=== PATIENT | female | born 1950 | race Caucasian/White ===

== ENCOUNTER 2022-10-18 10:49 | Observation (INO) ==
[2022-10-18 11:05] VITALS: BMI 33.5
--- NOTE | 2022-10-18 11:45 | DR.GENAD ---
HPI Time Seen Time Seen by Provider: 10/18/22 11:44 PCP Primary Care Physician: Willi Crowe Complaint/Symptoms Chief Complaint Doctors Comments: RECURRENT DIZZINESS,LIGHT HEADEDNESS AND LOW BP AT HOME. HAD LABS DWARN BY PCP AND WAS TOLD HGB WAS 6.5 AND WAS TOLD TO [facility] ER FOR FURTHER EVALUATION. HAS BEEN HAVING SOME LOSS OF BALANCE AT HOME. Chief Complaint:: Pt c/o dizzy spells, lightheaded, BP has been low at home. Blood work done yesterday per PCP and states her hgb was low, 6.5 per PCP ofc staff this morning. Pt was advised to come to ER for eval. BS has been "a little low". Frequent falls at home; states her fluid intake and appetite has been adequate. 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 Family History History of Family Medical Conditions: Yes Family Medical History: Diabetes Mellitus, Cancer, Coronary Artery Disease, Heart Failure and Hypertension Social History Does patient currently use any type of tobacco product: Yes Have you used tobacco products in the last 12 months: Yes Type of Tobacco Use: Cigarettes Does any household member use tobacco: Yes Alcohol Use: None Do you use any recreational Drugs:: No Lives With: Spouse and Family Lives Where: Home Travel Risk Coronavirus risk:travel/contact w/high risk person: No Has patient experienced Coronavirus symptoms: No Infectious screening In the last 2 months have you had wt loss of >10#?: NO Have you had fever, night sweats or hemotysis?: No Have you traveled outside the country in the last 6 months?: No Isolation: Standard ROS Review of Systems Constitutional: Weakness, Fatigue and Other (LIGHT HEADED) Eyes: No Symptoms Reported ENTM: No Symptoms Reported Respiratoy: No Symptoms Reported Cardiovascular: No Symptoms Reported Gastrointestinal/Abdominal: No Symptoms Reported Genitourinary: No Symptoms Reported Neurological: No Symptoms Reported Musculoskeletal: No Symptoms Reported Integumentary: No Symptoms Reported; negative See HPI, Change in Color, Change in Hair/Nails, Dryness, Lesions, Lumps, Rash, Itching, Wound, Bruises, Juandice or Other Hematologic/Lymphatic: No Symptoms Reported Endocrine: No Symptoms Reported Psychiatric: No Symptoms Reported PE Vital Signs Vitals: Vital Signs Temperature 98.9 F Pulse Rate 93 Pulse Rate 85 Pulse Rate 80 Pulse Rate 83 Pulse Rate 88 Pulse Rate 82 Pulse Rate 83 Pulse Rate 82 Pulse Rate 99 Respiratory Rate 20 Blood Pressure 123/73 Blood Pressure 118/58 Blood Pressure 147/65 Blood Pressure 108/54 Blood Pressure 115/53 Blood Pressure 113/56 O2 Sat by Pulse Oximetry 92 O2 Sat by Pulse Oximetry 93 O2 Sat by Pulse Oximetry 94 O2 Sat by Pulse Oximetry 96 O2 Sat by Pulse Oximetry 98 O2 Sat by Pulse Oximetry 96 O2 Sat by Pulse Oximetry 98 O2 Sat by Pulse Oximetry 98 O2 Sat by Pulse Oximetry 97 General Limitations: No Limitations General Appearance: Alert and In Distress (MILD DISTRESS) Head Head Exam: Normal Inspection, Atraumatic and Normocephalic Eyes Eye exam: Normal Appearance, PERRL and EOMI ENT ENT Exam: Normal Exam, Normal Oropharynx and Normal External Ear Exam External Ear Exam: Normal External Inspection Nose Exam: Normal Nose Exam Mouth Exam: Normal Inspection Throat Exam: Normal Inspection Neck Neck Exam: Normal Inspection and Full ROM Chest Chest Inspection: Normal Inspection and Symmetric Chest Wall Rise Respiratory Respiratory Exam: Normal Lung Sounds Bilat Respiratory Exam: Bilateral: Clear to Auscultation Cardiovascular Cardiovascular Exam: Regular Rate and Normal Rhythm Abdominal Exam Abdominal Exam: Normal Inspection and Normal Bowel Sounds Extremities Extremities Exam: Normal Inspection and Full ROM Back Back Exam: Normal Inspection and Full ROM Neurologic Neurological Exam: Alert and Oriented X3 Psychiatric Psychiatric Exam: Normal Affect and Normal Mood Skin Skin Exam: Warm, Dry and Intact MDM Differential Diagnosis Differential Diagnosis: ANEMIA,LETHARGY,DIZZINESS COURSE Treatment Treatment: PATIENT REMAINED RELATIVELY STABLE DURING ER EVALUATION. H/H WAS 6.7/21.3. CT OF BRAIN WAS NEGATIVE FOR INTRACRANIAL ABNORMALITY. FECAL OCCULT BLOOD WAS NEGATIVE.CONTACT WAS MADE WITH DR HARTLEY AT 1505 AND HE STATED TO REFER THE PATIENT TO OBSERVATION FOR TRANSFUSE 2 UNITS OF PRBC. PATIENT WAS TOLD OF THE INTENT AND WASA AGREABLE TO THE INTENT. ROR Labs Reviewed Laboratory Results Reviewed?: Yes 10/18/22 12:10 10/18/22 12:10 Laboratory: WBC 10.4 X10^3/uL (3.6-10.0) H 10/18/22 12:10 RBC 3.51 X10^6/uL (3.5-5.4) 10/18/22 12:10 Hgb 6.7 g/dL (12.0-16.0) L* 10/18/22 12:10 Hct 21.3 % (36.0-47.0) L 10/18/22 12:10 MCV 60.8 fL (80.0-100.0) L 10/18/22 12:10 MCH 19.2 pg (27.0-34.0) L 10/18/22 12:10 MCHC 31.6 g/dL (33.0-35.0) L 10/18/22 12:10 RDW 20.5 % (11.6-16.5) H 10/18/22 12:10 Plt Count 255 X10^3/uL (150.0-450.0) 10/18/22 12:10 Plt Count Comment Adequate (ADEQUATE) 10/18/22 12:10 MPV 8.4 fL (7.4-11.0) 10/18/22 12:10 Neut % (Auto) 72.2 % (42.0-75.0) 10/18/22 12:10 Lymph % (Auto) 17.6 % (21.0-51.0) L 10/18/22 12:10 [place] % (Auto) 8.6 % (0.0-13.0) 10/18/22 12:10 Eos % (Auto) 1.0 % (0.9-2.9) 10/18/22 12:10 Baso % (Auto) 0.6 % (0.2-1.0) 10/18/22 12:10 Neut # (Auto) 7.5 x10^3/uL (2.2-4.8) H 10/18/22 12:10 Lymph # (Auto) 1.8 X10^3/uL (1.3-2.9) 10/18/22 12:10 [place] # (Auto) 0.9 x10^3/uL (0.3-0.8) H 10/18/22 12:10 Eos # (Auto) 0.1 x10^3/uL (0.0-0.2) 10/18/22 12:10 Baso # (Auto) 0.1 X10^3/uL (0.0-0.1) 10/18/22 12:10 Absolute Nucleated RBC 0.1 /100WBC 10/18/22 12:10 Plt Morphology Comment Normal (NORMAL) 10/18/22 12:10 RBC Morphology Abnormal (NORMAL) A 10/18/22 12:10 Hypochromasia 3+ A 10/18/22 12:10 Anisocytosis 1+ A 10/18/22 12:10 Microcytosis 2+ A 10/18/22 12:10 Target Cells Slight A 10/18/22 12:10 Schistocytes 1+ A 10/18/22 12:10 Sodium 131 mmol/L (136-145) L 10/18/22 12:10 Corrected Sodium TNP 10/18/22 12:10 Potassium 4.7 mmol/L (3.5-5.1) 10/18/22 12:10 Chloride 96 mmol/L (98-107) L 10/18/22 12:10 Carbon Dioxide 25.7 mmol/L (21-32) 10/18/22 12:10 BUN 25 mg/dL (7-18) H 10/18/22 12:10 Creatinine 1.01 mg/dL (0.55-1.02) 10/18/22 12:10 Est GFR (MDRD) Af Amer > 60 (>60) 10/18/22 12:10 Est GFR (MDRD) Non-Af 57 (>60) L 10/18/22 12:10 Glucose 68 mg/dL (65-99) 10/18/22 12:10 Calcium 8.6 mg/dL (8.5-10.1) 10/18/22 12:10 Corrected Calcium TNP 10/18/22 12:10 Total Bilirubin 0.20 mg/dL (0.2-1.0) 10/18/22 12:10 AST 20 Units/L (15-37) 10/18/22 12:10 ALT 16 Units/L (12-78) 10/18/22 12:10 Alkaline Phosphatase 72 Units/L (46-116) 10/18/22 12:10 Total Protein 7.1 g/dL (6.4-8.2) 10/18/22 12:10 Albumin 3.7 g/dL (3.4-5.0) 10/18/22 12:10 Globulin 3.4 g/dL (2.5-4.5) 10/18/22 12:10 Albumin/Globulin Ratio 1.1 Ratio (1.1-2.1) 10/18/22 12:10 Specimen Type Clean catch urine 10/18/22 11:49 Urine Color Straw (YELLOW) 10/18/22 11:49 Urine Appearance Clear (CLEAR) 10/18/22 11:49 Urine pH 6.0 (5.0 - 8.0) 10/18/22 11:49 Ur Specific [place] 1.015 (1.000-1.030) 10/18/22 11:49 Urine Protein Negative (NEGATIVE) 10/18/22 11:49 Urine Glucose (UA) Negative (NEGATIVE) 10/18/22 11:49 Urine Ketones Negative (NEGATIVE) 10/18/22 11:49 Urine Blood Negative (NEGATIVE) 10/18/22 11:49 Urine Nitrite Negative (NEGATIVE) 10/18/22 11:49 Urine Bilirubin Negative (NEGATIVE) 10/18/22 11:49 Urine Urobilinogen Normal (NORMAL) 10/18/22 11:49 Ur Leukocyte Esterase Negative (NEGATIVE) 10/18/22 11:49 Stl Occult Blood (IFOB) Negative (NEGATIVE) 10/18/22 15:14 Blood Type A POSITIVE 10/18/22 13:35 Antibody Screen Negative 10/18/22 12:10 Opioid Opioid Risk Tool Age (Bartolo box if 16-45): No History of Preadolescent Sexual Abuse: No Total: 0 Total Score Risk Category: Low Risk Copyright: Jaren GOFF predicting aberrant behaviors Discharge Plan Diagnosis Discharge Problem: Anemia Discharge Plan Patient Disposition: 09 ADMITTED INPATIENT Condition: Stable Prescriptions: No Action amitriptyline 75 mg tablet 1 tab PO QPM ropinirole 3 mg tablet 1 tab PO QPM diclofenac sodium 75 mg tablet,delayed release (DR/EC) 1 tab PO BID PRN Trulicity 0.75 mg/0.5 mL pen injector 0.75 mg SUBCUT QWEEK enalapril maleate 20 mg tablet 20 mg PO QDAY glipizide 10 mg tablet 10 mg PO BID acetaminophen-codeine 300-30 mg tablet 1 tab PO BID PRN (Reason: pain) omeprazole 40 mg capsule,delayed release(DR/EC) 40 mg PO QAM kdlpeyvhgi-vgxzlifqtdnop-zstk 50-325-40 mg tablet 1 tab PO QDAY PRN methocarbamol 750 mg tablet 750 mg PO TID metformin 1,000 mg tablet 1,000 mg PO BID aspirin 81 mg Tablet 81 mg PO QDAY furosemide 20 mg tablet 20 mg PO QDAY albuterol sulfate 90 mcg/actuation HFA aerosol inhaler 2 puff INHALATION Q6H PRN albuterol sulfate [ProAir HFA] 90 mcg/actuation Hfa Aerosol Inhaler 2 puff INHALATION Q4-6H PRN loratadine 10 mg Tablet 10 mg PO QDAY duloxetine 60 mg capsule,delayed release(DR/EC) 60 mg PO QDAY Januvia 100 mg tablet 100 mg PO QDAY fluticasone furoate-vilanterol [Breo Ellipta] 100-25 mcg/dose blister with device 1 ea INHALATION QDAY Health Concerns: Post Hospitalization: new medications and changes needed to prevent readmission or further decline. Pt educated and given instructions on all concerns. Plan of Treatment: Continue with present treatment and follow up plan. Pt is to keep follow up appointment as instructed and take medications as ordered. Orders to Discharge Patient Discharge Orders: Transfer (Routine); Ordered 10/18/22 Ordered By: Khang Fraga Follow ups/Referrals Follow ups/Referrals: DEEPTI CROWE [Primary Care Provider] - 3 days Instructions Stand Alone Forms: Post Hospital Follow Up Care
[2022-10-18 12:09] LABS: BILIRUBIN,URINE NEGATIVE (NEGATIVE); BLOOD/HEMOGLOBIN,URINE NEGATIVE (NEGATIVE); GLUCOSE, URINE NEGATIVE (NEGATIVE); KETONES,URINE NEGATIVE (NEGATIVE); LEUKOCYTE ESTERASE ,URINE NEGATIVE (NEGATIVE); NITRITES,URINE NEGATIVE (NEGATIVE); PROTEIN,URINE NEGATIVE (NEGATIVE); UROBILINOGEN,URINE NORMAL (NORMAL)
[2022-10-18 12:10] LABS: APPEARANCE,URINE CLEAR (CLEAR); COLOR,URINE STRAW (YELLOW)
[2022-10-18 12:24] LABS: EOSINOPHILS # (AUTO) 0.1 x10^3/uL (0.0-0.2)
[2022-10-18 12:28] LABS: BASOPHILS # (AUTO) 0.1 X10^3/uL (0.0-0.1); BASOPHILS % (AUTO) 0.6 % (0.2-1.0); HEMATOCRIT 21.3 % (36.0-47.0); LYMPHOCYTES # (AUTO) 1.8 X10^3/uL (1.3-2.9); LYMPHOCYTES % (AUTO) 17.6 % (21.0-51.0); MEAN CORPUSCULAR HEMOGLOBIN 19.2 pg (27.0-34.0); MEAN CORPUSCULAR HGB CONC 31.6 g/dL (33.0-35.0); MEAN CORPUSCULAR VOLUME 60.8 fL (80.0-100.0); MEAN PLATELET VOLUME 8.4 fL (7.4-11.0); MONOCYTES # (AUTO) 0.9 x10^3/uL (0.3-0.8); MONOCYTES % (AUTO) 8.6 % (0.0-13.0); NEUTROPHILS # (AUTO) 7.5 x10^3/uL (2.2-4.8); NEUTROPHILS % (AUTO) 72.2 % (42.0-75.0); PLATELET COUNT 255 X10^3/uL (150.0-450.0); RED BLOOD COUNT 3.51 X10^6/uL (3.5-5.4); RED CELL DISTRIBUTION WIDTH 20.5 % (11.6-16.5); WHITE BLOOD COUNT 10.4 X10^3/uL (3.6-10.0)
[2022-10-18 12:32] LABS: HEMOGLOBIN 6.7 g/dL (12.0-16.0)
[2022-10-18 12:45] LABS: ALANINE AMINOTRANSFERASE 16 Units/L (12-78); ALBUMIN 3.7 g/dL (3.4-5.0); ALKALINE PHOSPHATASE 72 Units/L (46-116); ASPARTATE AMINO TRANSFERASE 20 Units/L (15-37); BLOOD UREA NITROGEN 25 mg/dL (7-18); CALCIUM 8.6 mg/dL (8.5-10.1); CARBON DIOXIDE 25.7 mmol/L (21-32); CHLORIDE 96 mmol/L (98-107); CREATININE 1.01 mg/dL (0.55-1.02); GLUCOSE 68 mg/dL (65-99); POTASSIUM 4.7 mmol/L (3.5-5.1); SODIUM 131 mmol/L (136-145); TOTAL PROTEIN 7.1 g/dL (6.4-8.2); eGFR NON BLACK RACES 57 (>60)
[2022-10-18 12:46] LABS: ANISOCYTOSIS 1+; HYPOCHROMASIA 3+; MICROCYTOSIS 2+; PLATELET MORPHOLOGY COMMENT NORMAL (NORMAL); SCHISTOCYTES 1+; TARGET CELLS SLIGHT
--- NOTE | 2022-10-18 12:52 | CT ---
HISTORYPT C/O DIZZY SPELLS, LIGHTHEADED, BP HAS BEEN LOW AT HOME, FREQUENT FALLS AT HOMESTUDYBRAIN W/O CONCOMPARISONNone availableTECHNIQUEMultiple helical images of the brain from the vertex to the occiput were obtained. Coronal and sagittal reformats were performed. Dose reduction techniques including Automated Exposure Control (AEC) and adjustment of mA and kV were utilized.FINDINGS[No acute intraparenchymal hemorrhage or mass can be identified.] [No extra-axial fluid collections are seen.] [No alteration in the attenuation of the brain parenchyma can be identified to suggest acute or subacute ischemic change.] [The ventricular system is symmetric and nondilated.] [The extracranial structures are grossly unremarkable.]IMPRESSIONNo acute intracranial process identified.Electronically signed by: ANA GEE (Oct 18, 2022 12:50:31)
[2022-10-18] MEDS ORDERED: PROVENTIL NEB TX 0.083% 2.5MG/ 3ML NEB PRN (16:51)
[2022-10-18] MEDS: ELAVIL PO SCH (20:53)
[2022-10-18] MEDS: CRESTOR TAB 10 MG PO SCH (20:53)
[2022-10-18] MEDS: SNACK - Diabetic Appropriate PO SCH (20:54)
[2022-10-18] MEDS ORDERED: PROVENTIL NEB TX 0.083% 2.5MG/ 3ML NEB SCH (21:00)
[2022-10-18] MEDS ORDERED: Atrovent NEB TX 0.02% NEB SCH (21:00)
[2022-10-18] MEDS: PULMICORT NEB TX 0.5 MG NEB SCH (21:10)
[2022-10-18] MEDS ORDERED: NS 250 ML IV 250 ML IV ONE (23:01)
[2022-10-18] MEDS ORDERED: STERILE WATER IRRIGATION IR ONE (23:28)
[2022-10-19] MEDS ORDERED: NORCO 5/325 MG TAB PO PRN (00:34)
[2022-10-19 04:29] LABS: ALANINE AMINOTRANSFERASE 15 Units/L (12-78); ALBUMIN 3.2 g/dL (3.4-5.0); ALKALINE PHOSPHATASE 66 Units/L (46-116); ASPARTATE AMINO TRANSFERASE 16 Units/L (15-37); BLOOD UREA NITROGEN 18 mg/dL (7-18); CALCIUM 8.2 mg/dL (8.5-10.1); CARBON DIOXIDE 28.7 mmol/L (21-32); CHLORIDE 98 mmol/L (98-107); COR CA(FOR HYPOALB) 8.8 mg/dL (8.5-10.1); CREATININE 1.01 mg/dL (0.55-1.02); GLUCOSE 87 mg/dL (65-99); POTASSIUM 4.4 mmol/L (3.5-5.1); SODIUM 134 mmol/L (136-145); TOTAL PROTEIN 6.3 g/dL (6.4-8.2); eGFR NON BLACK RACES 57 (>60)
[2022-10-19 04:32] LABS: BASOPHILS # (AUTO) 0.1 X10^3/uL (0.0-0.1); EOSINOPHILS # (AUTO) 0.1 x10^3/uL (0.0-0.2); EOSINOPHILS % (AUTO) 1.6 % (0.9-2.9); HEMATOCRIT 22.4 % (36.0-47.0); HEMOGLOBIN 7.2 g/dL (12.0-16.0); LYMPHOCYTES % (AUTO) 25.2 % (21.0-51.0); MEAN CORPUSCULAR HEMOGLOBIN 20.1 pg (27.0-34.0); MEAN CORPUSCULAR HGB CONC 31.9 g/dL (33.0-35.0); MEAN CORPUSCULAR VOLUME 62.9 fL (80.0-100.0); MEAN PLATELET VOLUME 8.5 fL (7.4-11.0); MONOCYTES # (AUTO) 0.7 x10^3/uL (0.3-0.8); MONOCYTES % (AUTO) 8.3 % (0.0-13.0); NEUTROPHILS % (AUTO) 63.9 % (42.0-75.0); PLATELET COUNT 232 X10^3/uL (150.0-450.0); RED BLOOD COUNT 3.57 X10^6/uL (3.5-5.4); WHITE BLOOD COUNT 7.9 X10^3/uL (3.6-10.0)
[2022-10-19 04:38] LABS: ANISOCYTOSIS 1+; HYPOCHROMASIA 2+; MICROCYTOSIS 2+; PLATELET MORPHOLOGY COMMENT NORMAL (NORMAL); SCHISTOCYTES SLIGHT; TARGET CELLS SLIGHT
[2022-10-19] MEDS ORDERED: GLUCOPHAGE ONE ×2 (06:01→17:11)
[2022-10-19] MEDS: GLUCOPHAGE PO SCH ×2 (06:03→17:08)
[2022-10-19] MEDS: GLUCOTROL PO SCH ×2 (06:03→17:08)
[2022-10-19] MEDS: PULMICORT NEB TX 0.5 MG NEB SCH ×2 (08:56→21:44)
[2022-10-19] MEDS ORDERED: PATIENT'S HOME MEDICATION (Fluticasone Furoate-Vilanterol [Breo Ellipta] 100-25 mcg/dose b IN SCH (09:00)
[2022-10-19] MEDS: VASOTEC TAB 20 MG PO SCH (09:32)
[2022-10-19] MEDS ORDERED: NS 250 ML IV 250 ML IV ONE ×2 (09:36→23:43)
[2022-10-19] MEDS: JANUVIA PO SCH (11:30)
[2022-10-19] MEDS: CYMBALTA PO SCH (11:30)
[2022-10-19] MEDS: PriLOSEC PO SCH (11:31)
--- NOTE | 2022-10-19 12:31 | DR.H&P ---
H&P History & Physical for Day of: H&P Date: 10/19/22 Chief Complaint Chief Complaint: Lightheaded Dizziness Allergies Allergies Allergy/AdvReac Type Severity Reaction Status Date / Time cefaclor [From Ceclor] Allergy Verified 08/27/22 13:30 erythromycin base Allergy Verified 08/27/22 13:30 Tetracyclines Allergy Verified 08/27/22 13:30 History of Present Illness History of Present Illness: Patient presents with lightheaded and dizziness. She has a PMH of COPD, HTN and DM. She had labs done at PCP office and was told that her hemoglobin is low and to go to the ER. She was admitted for symptomatic anemia. Her Hgb on admission was 6.7. She has received 1 unit of PRBCs, Hgb is 7.2. She denies any active bleeding. FOBT (-). Labs/imaging reviewed Plan: Transfuse 1 more unit, monitor H/H. Anemia panel ordered. Resume home medications. Monitor for any bleeding. Follow AM labs. 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 Family History Family Medical History: Diabetes Mellitus, Cancer, Coronary Artery Disease, Heart Failure and Hypertension Social History Does patient currently use any type of tobacco product: Yes Have you used tobacco products in the last 12 months: Yes Type of Tobacco Use: Cigarettes Does any household member use tobacco: Yes Alcohol Use: None Drug Use: None Medications Home Medications: Home Medications Medication Instructions Recorded Confirmed Type amitriptyline 75 mg tablet 1 tab PO QPM 08/27/22 10/18/22 History diclofenac sodium 75 mg 1 tab PO BID PRN 08/27/22 10/18/22 History tablet,delayed release dulaglutide 0.75 mg/0.5 mL 0.75 mg subcut QWEEK 08/27/22 10/18/22 History subcutaneous pen injector (Trulicity) ropinirole 3 mg tablet 1 tab PO QPM 08/27/22 10/18/22 History acetaminophen 300 mg-codeine 30 mg 1 tab PO BID PRN pain 10/18/22 10/18/22 History tablet albuterol sulfate 90 mcg/actuation 2 puff inhalation Q6H PRN 10/18/22 10/18/22 History aerosol inhaler albuterol sulfate 90 mcg/actuation 2 puff inhalation Q4-6H PRN 10/18/22 10/18/22 History aerosol inhaler (ProAir HFA) aspirin 81 mg tablet 81 mg PO QDAY 10/18/22 10/18/22 History cynkqreykq-gwlrmhxvrtdft-flrrbxox 1 tab PO QDAY PRN 10/18/22 10/18/22 History 50 mg-325 mg-40 mg tablet duloxetine 60 mg capsule,delayed 60 mg PO QDAY 10/18/22 10/18/22 History release enalapril maleate 20 mg tablet 20 mg PO QDAY 10/18/22 10/18/22 History fluticasone furoate 100 1 ea inhalation QDAY 10/18/22 10/18/22 History mcg-vilanterol 25 mcg/dose inhalation powder (Breo Ellipta) furosemide 20 mg tablet 20 mg PO QDAY 10/18/22 10/18/22 History glipizide 10 mg tablet 10 mg PO BID 10/18/22 10/18/22 History loratadine 10 mg tablet 10 mg PO QDAY 10/18/22 10/18/22 History metformin 1,000 mg tablet 1,000 mg PO BID 10/18/22 10/18/22 History methocarbamol 750 mg tablet 750 mg PO TID 10/18/22 10/18/22 History omeprazole 40 mg capsule,delayed 40 mg PO QAM 10/18/22 10/18/22 History release sitagliptin phosphate 100 mg 100 mg PO QDAY 10/18/22 10/18/22 History tablet (Januvia) Labs 10/19/22 04:05 10/19/22 04:05 Labs: Laboratory WBC 7.9 X10^3/uL (3.6-10.0) 10/19/22 04:05 RBC 3.57 X10^6/uL (3.5-5.4) 10/19/22 04:05 Hgb 7.2 g/dL (12.0-16.0) L 10/19/22 04:05 Hct 22.4 % (36.0-47.0) L 10/19/22 04:05 MCV 62.9 fL (80.0-100.0) L 10/19/22 04:05 MCH 20.1 pg (27.0-34.0) L 10/19/22 04:05 MCHC 31.9 g/dL (33.0-35.0) L 10/19/22 04:05 RDW 22.0 % (11.6-16.5) H 10/19/22 04:05 Plt Count 232 X10^3/uL (150.0-450.0) 10/19/22 04:05 Plt Count Comment Adequate (ADEQUATE) 10/19/22 04:05 MPV 8.5 fL (7.4-11.0) 10/19/22 04:05 Neut % (Auto) 63.9 % (42.0-75.0) 10/19/22 04:05 Lymph % (Auto) 25.2 % (21.0-51.0) 10/19/22 04:05 [place] % (Auto) 8.3 % (0.0-13.0) 10/19/22 04:05 Eos % (Auto) 1.6 % (0.9-2.9) 10/19/22 04:05 Baso % (Auto) 1.0 % (0.2-1.0) 10/19/22 04:05 Neut # (Auto) 5.0 x10^3/uL (2.2-4.8) H 10/19/22 04:05 Lymph # (Auto) 2.0 X10^3/uL (1.3-2.9) 10/19/22 04:05 [place] # (Auto) 0.7 x10^3/uL (0.3-0.8) 10/19/22 04:05 Eos # (Auto) 0.1 x10^3/uL (0.0-0.2) 10/19/22 04:05 Baso # (Auto) 0.1 X10^3/uL (0.0-0.1) 10/19/22 04:05 Absolute Nucleated RBC 0.1 /100WBC 10/19/22 04:05 Plt Morphology Comment Normal (NORMAL) 10/19/22 04:05 RBC Morphology Abnormal (NORMAL) A 10/19/22 04:05 Hypochromasia 2+ A 10/19/22 04:05 Anisocytosis 1+ A 10/19/22 04:05 Microcytosis 2+ A 10/19/22 04:05 Target Cells Slight A 10/19/22 04:05 Schistocytes Slight A 10/19/22 04:05 Sodium 134 mmol/L (136-145) L 10/19/22 04:05 Corrected Sodium TNP 10/19/22 04:05 Potassium 4.4 mmol/L (3.5-5.1) 10/19/22 04:05 Chloride 98 mmol/L (98-107) 10/19/22 04:05 Carbon Dioxide 28.7 mmol/L (21-32) 10/19/22 04:05 BUN 18 mg/dL (7-18) 10/19/22 04:05 Creatinine 1.01 mg/dL (0.55-1.02) 10/19/22 04:05 Est GFR (MDRD) Af Amer > 60 (>60) 10/19/22 04:05 Est GFR (MDRD) Non-Af 57 (>60) L 10/19/22 04:05 Glucose 87 mg/dL (65-99) 10/19/22 04:05 POC Glucose (mg/dL) 69 mg/dL (65-99) 10/19/22 11:23 Calcium 8.2 mg/dL (8.5-10.1) L 10/19/22 04:05 Corrected Calcium 8.8 mg/dL (8.5-10.1) 10/19/22 04:05 Total Bilirubin 0.40 mg/dL (0.2-1.0) 10/19/22 04:05 AST 16 Units/L (15-37) 10/19/22 04:05 ALT 15 Units/L (12-78) 10/19/22 04:05 Alkaline Phosphatase 66 Units/L (46-116) 10/19/22 04:05 Total Protein 6.3 g/dL (6.4-8.2) L 10/19/22 04:05 Albumin 3.2 g/dL (3.4-5.0) L 10/19/22 04:05 Globulin 3.1 g/dL (2.5-4.5) 10/19/22 04:05 Albumin/Globulin Ratio 1.0 Ratio (1.1-2.1) L 10/19/22 04:05 Specimen Type Clean catch urine 10/18/22 11:49 Urine Color Straw (YELLOW) 10/18/22 11:49 Urine Appearance Clear (CLEAR) 10/18/22 11:49 Urine pH 6.0 (5.0 - 8.0) 10/18/22 11:49 Ur Specific [place] 1.015 (1.000-1.030) 10/18/22 11:49 Urine Protein Negative (NEGATIVE) 10/18/22 11:49 Urine Glucose (UA) Negative (NEGATIVE) 10/18/22 11:49 Urine Ketones Negative (NEGATIVE) 10/18/22 11:49 Urine Blood Negative (NEGATIVE) 10/18/22 11:49 Urine Nitrite Negative (NEGATIVE) 10/18/22 11:49 Urine Bilirubin Negative (NEGATIVE) 10/18/22 11:49 Urine Urobilinogen Normal (NORMAL) 10/18/22 11:49 Ur Leukocyte Esterase Negative (NEGATIVE) 10/18/22 11:49 Stl Occult Blood (IFOB) Negative (NEGATIVE) 10/18/22 15:14 Blood Type A POSITIVE 10/18/22 13:35 Antibody Screen Negative 10/18/22 12:10 Crossmatch See Detail 10/18/22 12:10 Review of Systems Constitutional: Weakness Eyes: No Symptoms Reported ENT: No Symptoms Reported Respiratory: No Symptoms Reported Cardiovascular: No Symptoms Reported Gastrointestinal: No Symptoms Reported Genitourinary: No Symptoms Reported Musculoskeletal: No Symptoms Reported Skin: No Symptoms Reported Neurological: No Symptoms Reported Physical Exam Vital Signs: Vital Signs Temperature 98.2 F Pulse Rate [Apical] 71 Pulse Rate 89 Respiratory Rate 20 Blood Pressure [Left Arm] 112/62 O2 Sat by Pulse Oximetry 96 O2 Sat by Pulse Oximetry 95 Oriented: Normal Eyes: Normal Ear: Normal Nose: Normal Throat: Normal Respiratory: Diminished Throughout Cardiovascular: Normal Auscultation: Bowel Sounds: Normal Palpation: Normal Tenderness: Normal Skin: Normal Musculoskeletal: Normal Psychiatric: Normal Mood Description: Calm and Appropriate Affect: Normal Speech Pattern: Clear and Appropriate Assessment/Plan (1) Anemia: Status: Acute (2) COPD (chronic obstructive pulmonary disease): Status: Acute (3) HTN (hypertension): Status: Acute (4) Diabetes: Status: Acute Review H&P Reviewed: Yes Patient was examined?: Yes
[2022-10-19 14:22] LABS: HEMATOCRIT 24.1 % (36.0-47.0); HEMOGLOBIN 7.7 g/dL (12.0-16.0)
[2022-10-19] MEDS: CRESTOR TAB 10 MG PO SCH (20:02)
[2022-10-19] MEDS: ELAVIL PO SCH (20:02)
[2022-10-19] MEDS: SNACK - Diabetic Appropriate PO SCH (20:02)
[2022-10-19] MEDS: BACTROBAN TOPICAL OINT TOP SCH (21:36)
[2022-10-20] MEDS ORDERED: GLUCOPHAGE ONE (04:43)
[2022-10-20 05:27] LABS: BASOPHILS % (AUTO) 0.5 % (0.2-1.0); EOSINOPHILS # (AUTO) 0.2 x10^3/uL (0.0-0.2); EOSINOPHILS % (AUTO) 2.1 % (0.9-2.9); HEMATOCRIT 25.9 % (36.0-47.0); HEMOGLOBIN 8.4 g/dL (12.0-16.0); LYMPHOCYTES # (AUTO) 1.9 X10^3/uL (1.3-2.9); LYMPHOCYTES % (AUTO) 24.6 % (21.0-51.0); MEAN CORPUSCULAR HEMOGLOBIN 21.3 pg (27.0-34.0); MEAN CORPUSCULAR HGB CONC 32.2 g/dL (33.0-35.0); MEAN CORPUSCULAR VOLUME 65.9 fL (80.0-100.0); MEAN PLATELET VOLUME 8.8 fL (7.4-11.0); MONOCYTES # (AUTO) 0.7 x10^3/uL (0.3-0.8); MONOCYTES % (AUTO) 9.2 % (0.0-13.0); NEUTROPHILS % (AUTO) 63.6 % (42.0-75.0); PLATELET COUNT 212 X10^3/uL (150.0-450.0); RED BLOOD COUNT 3.93 X10^6/uL (3.5-5.4); RED CELL DISTRIBUTION WIDTH 23.1 % (11.6-16.5); WHITE BLOOD COUNT 7.9 X10^3/uL (3.6-10.0)
[2022-10-20 05:42] LABS: ALANINE AMINOTRANSFERASE 15 Units/L (12-78); ALBUMIN 3.2 g/dL (3.4-5.0); ALKALINE PHOSPHATASE 64 Units/L (46-116); ASPARTATE AMINO TRANSFERASE 16 Units/L (15-37); BLOOD UREA NITROGEN 14 mg/dL (7-18); CALCIUM 8.5 mg/dL (8.5-10.1); CARBON DIOXIDE 26.3 mmol/L (21-32); CHLORIDE 101 mmol/L (98-107); COR CA(FOR HYPOALB) 9.1 mg/dL (8.5-10.1); CREATININE 0.96 mg/dL (0.55-1.02); GLUCOSE 73 mg/dL (65-99); POTASSIUM 4.6 mmol/L (3.5-5.1); SODIUM 134 mmol/L (136-145); TOTAL PROTEIN 6.3 g/dL (6.4-8.2); eGFR NON BLACK RACES > 60 (>60)
[2022-10-20] MEDS: BACTROBAN TOPICAL OINT TOP SCH (05:46)
[2022-10-20 06:05] LABS: PLATELET MORPHOLOGY COMMENT NORMAL (NORMAL)
[2022-10-20 06:07] LABS: ANISOCYTOSIS 2+; HYPOCHROMASIA 2+; MICROCYTOSIS 1+
[2022-10-20] MEDS: GLUCOTROL PO SCH (06:08)
[2022-10-20] MEDS: GLUCOPHAGE PO SCH (06:08)
[2022-10-20 06:09] LABS: SCHISTOCYTES SLIGHT; TARGET CELLS SLIGHT
[2022-10-20] MEDS: PriLOSEC PO SCH (08:35)
[2022-10-20] MEDS: VASOTEC TAB 20 MG PO SCH (08:35)
[2022-10-20] MEDS: CYMBALTA PO SCH (08:35)
[2022-10-20] MEDS: JANUVIA PO SCH (08:35)
[2022-10-20] MEDS: PULMICORT NEB TX 0.5 MG NEB SCH (08:52)
[2022-10-20 10:37] VITALS: RESP 20
--- NOTE | 2022-10-20 11:35 | W.DIS.FURT ---
Summary of Discharge Discharge Summary of Date Date of Exam: 10/20/22 Admission Date Date of Admission: 10/18/22 Admission Diagnosis Patient Problems (Updated 10/20/22 @ 11:33 by Rayshawn Fuchs) Anemia (Acute) D64.9 Hospital Course: Patient admitted for symptomatic anemia. She has a PMH of COPD, HTN and DM. Her hospital/treatment course included receiving 3 units of packed red blood cells. FOBT (-). Her Hgb on admission was 6.7 and on discharge is 8.4. No signs of active bleeding and hemoglobin stabilized. Anemia panel reveals iron deficiency anemia. Rx iron. Pt discharged in stable condition. Instructed to follow up with pcp in 1 week. Vital Signs: Vital Signs (72 hours) 10/18/22 10:54 10/18/22 12:19 10/18/22 12:20 Temperature 98.9 F Pulse Rate 99 H 82 83 Pulse Rate [Apical] Respiratory Rate 20 Blood Pressure 113/56 Blood Pressure [Left Arm] O2 Sat by Pulse Oximetry 97 98 98 Oxygen Delivery Method Room Air Oxygen Flow Rate FIO2% 10/18/22 12:20 10/18/22 12:30 10/18/22 12:30 Temperature Pulse Rate 82 Pulse Rate [Apical] Respiratory Rate Blood Pressure 115/53 108/54 Blood Pressure [Left Arm] O2 Sat by Pulse Oximetry 96 Oxygen Delivery Method Oxygen Flow Rate FIO2% 10/18/22 12:42 10/18/22 12:42 10/18/22 12:45 Temperature Pulse Rate 88 83 Pulse Rate [Apical] Respiratory Rate Blood Pressure 147/65 Blood Pressure [Left Arm] O2 Sat by Pulse Oximetry 98 96 Oxygen Delivery Method Oxygen Flow Rate FIO2% 10/18/22 13:00 10/18/22 13:00 10/18/22 13:15 Temperature Pulse Rate 80 85 Pulse Rate [Apical] Respiratory Rate Blood Pressure 118/58 Blood Pressure [Left Arm] O2 Sat by Pulse Oximetry 94 L 93 L Oxygen Delivery Method Oxygen Flow Rate FIO2% 10/18/22 13:30 10/18/22 13:30 10/18/22 17:15 Temperature Pulse Rate 93 H Pulse Rate [Apical] Respiratory Rate Blood Pressure 123/73 Blood Pressure [Left Arm] O2 Sat by Pulse Oximetry 92 L Oxygen Delivery Method Nasal Cannula Oxygen Flow Rate 2 FIO2% 28 10/18/22 17:50 10/18/22 17:46 10/18/22 19:00 Temperature 98.5 F Pulse Rate Pulse Rate [Apical] 86 Respiratory Rate 20 Blood Pressure Blood Pressure [Left Arm] 124/68 O2 Sat by Pulse Oximetry 98 Oxygen Delivery Method Room Air Nasal Cannula Room Air Oxygen Flow Rate 2 FIO2% 10/18/22 21:10 10/18/22 21:11 10/18/22 20:00 Temperature 98.1 F Pulse Rate 77 Pulse Rate [Apical] 86 Respiratory Rate 20 Blood Pressure Blood Pressure [Left Arm] 130/86 O2 Sat by Pulse Oximetry 98 98 Oxygen Delivery Method Nasal Cannula Room Air Oxygen Flow Rate 2 FIO2% 28 10/19/22 00:58 10/19/22 00:00 10/19/22 01:56 Temperature 98.2 F Pulse Rate Pulse Rate [Apical] 75 Respiratory Rate 20 20 20 Blood Pressure Blood Pressure [Left Arm] 107/59 O2 Sat by Pulse Oximetry 99 Oxygen Delivery Method Room Air Oxygen Flow Rate FIO2% 10/19/22 04:00 10/19/22 08:56 10/19/22 08:56 Temperature 98.0 F Pulse Rate 89 Pulse Rate [Apical] 71 Respiratory Rate 20 Blood Pressure Blood Pressure [Left Arm] 114/74 O2 Sat by Pulse Oximetry 94 L 96 Oxygen Delivery Method Room Air Nasal Cannula Oxygen Flow Rate 2 FIO2% 28 10/19/22 08:00 10/19/22 07:00 10/19/22 12:00 Temperature 98.2 F 98.3 F Pulse Rate Pulse Rate [Apical] 71 77 Respiratory Rate 20 20 Blood Pressure Blood Pressure [Left Arm] 112/62 114/56 O2 Sat by Pulse Oximetry 95 95 Oxygen Delivery Method Room Air Room Air Room Air Oxygen Flow Rate FIO2% 10/19/22 16:00 10/19/22 18:45 10/19/22 20:00 Temperature 97.8 F 97.8 F Pulse Rate Pulse Rate [Apical] 82 74 Respiratory Rate 20 20 Blood Pressure Blood Pressure [Left Arm] 126/60 118/66 O2 Sat by Pulse Oximetry 95 99 Oxygen Delivery Method Room Air Room Air Room Air Oxygen Flow Rate FIO2% 10/19/22 21:45 10/19/22 21:45 10/20/22 00:00 Temperature 98.3 F Pulse Rate 65 Pulse Rate [Apical] 74 Respiratory Rate 20 Blood Pressure Blood Pressure [Left Arm] 118/66 O2 Sat by Pulse Oximetry 97 97 Oxygen Delivery Method Nasal Cannula Room Air Oxygen Flow Rate 2 FIO2% 28 10/20/22 04:00 10/20/22 08:53 10/20/22 08:53 Temperature 98.1 F Pulse Rate 95 H Pulse Rate [Apical] 71 Respiratory Rate 18 Blood Pressure Blood Pressure [Left Arm] 121/56 O2 Sat by Pulse Oximetry 94 L 97 Oxygen Delivery Method Room Air Room Air Oxygen Flow Rate FIO2% 21 10/20/22 08:00 10/20/22 07:00 Temperature 98.5 F Pulse Rate Pulse Rate [Apical] 88 Respiratory Rate 20 Blood Pressure Blood Pressure [Left Arm] 127/74 O2 Sat by Pulse Oximetry 95 Oxygen Delivery Method Room Air Room Air Oxygen Flow Rate FIO2% Labs: Laboratory Last Values WBC 7.9 X10^3/uL (3.6-10.0) 10/20/22 04:15 RBC 3.93 X10^6/uL (3.5-5.4) 10/20/22 04:15 Hgb 8.4 g/dL (12.0-16.0) L 10/20/22 04:15 Hct 25.9 % (36.0-47.0) L 10/20/22 04:15 MCV 65.9 fL (80.0-100.0) L 10/20/22 04:15 MCH 21.3 pg (27.0-34.0) L 10/20/22 04:15 MCHC 32.2 g/dL (33.0-35.0) L 10/20/22 04:15 RDW 23.1 % (11.6-16.5) H 10/20/22 04:15 Plt Count 212 X10^3/uL (150.0-450.0) 10/20/22 04:15 Plt Count Comment Adequate (ADEQUATE) 10/20/22 04:15 MPV 8.8 fL (7.4-11.0) 10/20/22 04:15 Neut % (Auto) 63.6 % (42.0-75.0) 10/20/22 04:15 Lymph % (Auto) 24.6 % (21.0-51.0) 10/20/22 04:15 Evangeline % (Auto) 9.2 % (0.0-13.0) 10/20/22 04:15 Eos % (Auto) 2.1 % (0.9-2.9) 10/20/22 04:15 Baso % (Auto) 0.5 % (0.2-1.0) 10/20/22 04:15 Neut # (Auto) 5.0 x10^3/uL (2.2-4.8) H 10/20/22 04:15 Lymph # (Auto) 1.9 X10^3/uL (1.3-2.9) 10/20/22 04:15 Evangeline # (Auto) 0.7 x10^3/uL (0.3-0.8) 10/20/22 04:15 Eos # (Auto) 0.2 x10^3/uL (0.0-0.2) 10/20/22 04:15 Baso # (Auto) 0.0 X10^3/uL (0.0-0.1) 10/20/22 04:15 Absolute Nucleated RBC 0.1 /100WBC 10/20/22 04:15 Plt Morphology Comment Normal (NORMAL) 10/20/22 04:15 RBC Morphology Abnormal (NORMAL) A 10/20/22 04:15 Hypochromasia 2+ A 10/20/22 04:15 Anisocytosis 2+ A 10/20/22 04:15 Microcytosis 1+ A 10/20/22 04:15 Target Cells Slight A 10/20/22 04:15 Schistocytes Slight A 10/20/22 04:15 Sodium 134 mmol/L (136-145) L 10/20/22 04:15 Corrected Sodium TNP 10/20/22 04:15 Potassium 4.6 mmol/L (3.5-5.1) 10/20/22 04:15 Chloride 101 mmol/L (98-107) 10/20/22 04:15 Carbon Dioxide 26.3 mmol/L (21-32) 10/20/22 04:15 BUN 14 mg/dL (7-18) 10/20/22 04:15 Creatinine 0.96 mg/dL (0.55-1.02) 10/20/22 04:15 Est GFR (MDRD) Af Amer > 60 (>60) 10/20/22 04:15 Est GFR (MDRD) Non-Af > 60 (>60) 10/20/22 04:15 Glucose 73 mg/dL (65-99) 10/20/22 04:15 POC Glucose (mg/dL) 102 mg/dL (65-99) H 10/20/22 11:01 Calcium 8.5 mg/dL (8.5-10.1) 10/20/22 04:15 Corrected Calcium 9.1 mg/dL (8.5-10.1) 10/20/22 04:15 Ferritin 8 ng/mL (8-252) 10/19/22 04:05 Total Bilirubin 0.30 mg/dL (0.2-1.0) 10/20/22 04:15 AST 16 Units/L (15-37) 10/20/22 04:15 ALT 15 Units/L (12-78) 10/20/22 04:15 Alkaline Phosphatase 64 Units/L (46-116) 10/20/22 04:15 Total Protein 6.3 g/dL (6.4-8.2) L 10/20/22 04:15 Albumin 3.2 g/dL (3.4-5.0) L 10/20/22 04:15 Globulin 3.1 g/dL (2.5-4.5) 10/20/22 04:15 Albumin/Globulin Ratio 1.0 Ratio (1.1-2.1) L 10/20/22 04:15 Vitamin B12 391 pg/mL (193-986) 10/19/22 04:05 Folate > 20.0 ng/mL (>8.6) 10/19/22 04:05 Specimen Type Clean catch urine 10/18/22 11:49 Urine Color Straw (YELLOW) 10/18/22 11:49 Urine Appearance Clear (CLEAR) 10/18/22 11:49 Urine pH 6.0 (5.0 - 8.0) 10/18/22 11:49 Ur Specific [place] 1.015 (1.000-1.030) 10/18/22 11:49 Urine Protein Negative (NEGATIVE) 10/18/22 11:49 Urine Glucose (UA) Negative (NEGATIVE) 10/18/22 11:49 Urine Ketones Negative (NEGATIVE) 10/18/22 11:49 Urine Blood Negative (NEGATIVE) 10/18/22 11:49 Urine Nitrite Negative (NEGATIVE) 10/18/22 11:49 Urine Bilirubin Negative (NEGATIVE) 10/18/22 11:49 Urine Urobilinogen Normal (NORMAL) 10/18/22 11:49 Ur Leukocyte Esterase Negative (NEGATIVE) 10/18/22 11:49 Stl Occult Blood (IFOB) Negative (NEGATIVE) 10/18/22 15:14 Blood Type A POSITIVE 10/18/22 13:35 Antibody Screen Negative 10/18/22 12:10 Crossmatch See Detail 10/18/22 12:10 Reason For Visit: ANEMIA Discharge Date Discharge Date: 10/20/22 Discharge Diagnosis All Active Problems (Updated 10/20/22 @ 11:33 by Rayshawn Fuchs) Symptomatic anemia (Acute) Diabetes (Acute) HTN (hypertension) (Acute) COPD (chronic obstructive pulmonary disease) (Acute) Fracture of lumbar vertebra (Acute) Anemia (Acute) Plan of Treatment: Continue with present treatment and follow up plan. Pt is to keep follow up appointment as instructed and take medications as ordered. Discharge Medications Discharge Medications: cefaclor [From [facility]] Allergy (Verified 08/27/22 13:30) erythromycin base Allergy (Verified 08/27/22 13:30) Tetracyclines Allergy (Verified 08/27/22 13:30) CONTINUE taking the following medications acetaminophen 300 mg-codeine 30 mg tablet 1 tab PO BID PRN pain 10/18/22 [History] albuterol sulfate 90 mcg/actuation aerosol inhaler 2 puff inhalation Q6H PRN 10/18/22 [History] albuterol sulfate 90 mcg/actuation aerosol inhaler (ProAir HFA) 2 puff inhalation Q4-6H PRN 10/18/22 [History] aspirin 81 mg tablet 81 mg PO QDAY 10/18/22 [History] hqeqiajvur-kfahzwaagsqeo-ngdtmkmv 50 mg-325 mg-40 mg tablet 1 tab PO QDAY PRN 10/18/22 [History] duloxetine 60 mg capsule,delayed release 60 mg PO QDAY 10/18/22 [History] enalapril maleate 20 mg tablet 20 mg PO QDAY 10/18/22 [History] fluticasone furoate 100 mcg-vilanterol 25 mcg/dose inhalation powder (Breo Ellipta) 1 ea inhalation QDAY 10/18/22 [History] furosemide 20 mg tablet 20 mg PO QDAY 10/18/22 [History] glipizide 10 mg tablet 10 mg PO BID 10/18/22 [History] loratadine 10 mg tablet 10 mg PO QDAY 10/18/22 [History] metformin 1,000 mg tablet 1,000 mg PO BID 10/18/22 [History] methocarbamol 750 mg tablet 750 mg PO TID 10/18/22 [History] omeprazole 40 mg capsule,delayed release 40 mg PO QAM 10/18/22 [History] sitagliptin phosphate 100 mg tablet (Januvia) 100 mg PO QDAY 10/18/22 [History] Discharge Disposition Discharge Disposition: Home Discharge Condition: Stable Discharge Plan Discharge Plan Hospital Course: Patient admitted for symptomatic anemia. She has a PMH of COPD, HTN and DM. Her hospital/treatment course included receiving 3 units of packed red blood cells. FOBT (-). Her Hgb on admission was 6.7 and on discharge is 8.4. No signs of active bleeding and hemoglobin stabilized. Anemia panel reveals iron deficiency anemia. Rx iron. Pt discharged in stable condition. Instructed to follow up with pcp in 1 week. Patient Disposition: 01 HOME, SELF-CARE Condition: Stable Health Concerns: Post Hospitalization: new medications and changes needed to prevent readmission or further decline. Pt educated and given instructions on all concerns. Plan of Treatment: Continue with present treatment and follow up plan. Pt is to keep follow up appointment as instructed and take medications as ordered. Prescriptions: New ferrous sulfate 325 mg (65 mg iron) tablet 325 mg PO QDAY 30 Days Qty: 30 0RF Continued amitriptyline 75 mg tablet 1 tab PO QPM ropinirole 3 mg tablet 1 tab PO QPM diclofenac sodium 75 mg tablet,delayed release (DR/EC) 1 tab PO BID PRN Trulicity 0.75 mg/0.5 mL pen injector 0.75 mg SUBCUT QWEEK enalapril maleate 20 mg tablet 20 mg PO QDAY glipizide 10 mg tablet 10 mg PO BID acetaminophen-codeine 300-30 mg tablet 1 tab PO BID PRN (Reason: pain) omeprazole 40 mg capsule,delayed release(DR/EC) 40 mg PO QAM tsiwdbynpt-puiipoxtjornz-keuc 50-325-40 mg tablet 1 tab PO QDAY PRN methocarbamol 750 mg tablet 750 mg PO TID metformin 1,000 mg tablet 1,000 mg PO BID aspirin 81 mg Tablet 81 mg PO QDAY furosemide 20 mg tablet 20 mg PO QDAY albuterol sulfate 90 mcg/actuation HFA aerosol inhaler 2 puff INHALATION Q6H PRN albuterol sulfate [ProAir HFA] 90 mcg/actuation Hfa Aerosol Inhaler 2 puff INHALATION Q4-6H PRN loratadine 10 mg Tablet 10 mg PO QDAY duloxetine 60 mg capsule,delayed release(DR/EC) 60 mg PO QDAY Januvia 100 mg tablet 100 mg PO QDAY fluticasone furoate-vilanterol [Breo Ellipta] 100-25 mcg/dose blister with device 1 ea INHALATION QDAY Orders to Discharge Patient Discharge Orders: Discharge (Routine); Ordered 10/20/22 Ordered By: Rayshawn Fuchs Follow ups/Referrals Follow ups/Referrals: DEEPTI CROWE [Primary Care Provider] - 3 days Instructions Stand Alone Forms: Excuse From Work or School, Post Hospital Follow Up Care
[2022-10-20 12:31] VITALS: BP 135/61; PULSE 98; TEMP 97.2; O2SAT 93
== END 2022-10-20 12:25 | disposition home or self-care (01) ==
LOC: MED/SURG 10:49 → ER 10:49 → MED/SURG 17:01
PROVIDERS: ADMIT Family Medicine; ATTEND Family Medicine